=== PATIENT | female | born 1950 | race Caucasian/White ===

== ENCOUNTER 2023-08-31 07:25 | Outpatient (CLI) | payer OTHER | END 2023-08-31 07:26 | disposition home or self-care (01) | LOC: BICULT 07:25 | PROVIDERS: ATTEND Nurse Practitioner Family | DX: R10.84 Generalized abdominal pain (principal); K80.20 Calculus of gallbladder without cholecystitis without obstruction; K82.8 Other specified diseases of gallbladder | CPT/HCPCS: 76700 ==